=== PATIENT | female | born 1995 | race Caucasian/White ===

== ENCOUNTER 2020-01-15 23:27 | Emergency (ER) | payer MEDICAID ==
[2020-01-15 23:40] LABS: BILIRUBIN,URINE NEGATIVE (NEGATIVE); CLARITY,URINE CLEAR (CLEAR); GLUCOSE, URINE (UA) NEGATIVE (NEGATIVE); KETONES,URINE (UA) NEGATIVE (NEGATIVE); LEUKOCYTE ESTERASE, URINE TRACE (NEGATIVE); NITRITE,URINE NEGATIVE (NEGATIVE); OCCULT BLOOD,URINE LARGE (NEGATIVE); PH,URINE 7.5 PH (5.0-7.5); PROTEIN,URINE NEGATIVE (NEGATIVE); UROBILINOGEN,URINE 0.2 (NORMAL) E.U./dL (NORMAL)
[2020-01-15 23:49] LABS: BASOPHILS % (AUTO) 0.4 %; EOSINOPHILS # (AUTO) 0.2 10^3/uL (0.0-0.7); EOSINOPHILS % (AUTO) 2.2 %; HGB - HEMOGLOBIN 12.8 g/dL (12.0-16.0); LYMPHOCYTES # (AUTO) 1.9 10^3/uL (1.5-3.5); LYMPHOCYTES % (AUTO) 24.3 %; MEAN CORPUSCULAR HEMOGLOBIN 29.2 pg (27.0-31.0); MEAN CORPUSCULAR HGB CONC 33.1 g/dL (32.0-36.0); MEAN CORPUSCULAR VOLUME 88.2 fL (81.0-99.0); MEAN PLATELET VOLUME 8.5 fL (7.9-10.8); MONOCYTES # (AUTO) 0.7 10^3/uL (0.0-1.0); MONOCYTES % (AUTO) 9.4 %; NEUTROPHILS # (AUTO) 4.9 10^3/uL (1.5-6.6); NEUTROPHILS % (AUTO) 63.4 %; PLT - PLATELET COUNT 235 10^3/uL (130-450); RED BLOOD COUNT 4.39 10^6/uL (4.20-5.40); WHITE BLOOD COUNT 7.7 x10^3/uL (4.8-10.8)
--- NOTE | 2020-01-15 23:53 | ED Physician Documentation ---
PD HPI FEMALE - Stated complaint Stated Complaint: FEM /13 WKS - Chief complaint Chief Complaint: Abd Pain - History obtained from History obtained from: Patient - History of Present Illness Timing - onset: Enter time (1200), Today Timing - duration: Hours Timing - details: Gradual onset, Still present Associated symptoms: Pelvic pain, Vaginal bleeding Contributing factors: Similar symptoms before: Diagnosis (miscarriage) Recently seen: Clinic - Additional information Additional information: 44-year-old female with a history of multiple previous recurrent spontaneous abortions has a 2 and [id number] daughter at home and she has become again and she thinks she is about 13 weeks and has had an ultrasound done at 8 weeks showing a viable fetus. She has developed some bleeding earlier in the day and some cramping and she is concerned about the possibility of miscarriage. She has not had a late miscarriage like this previously. 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: Endometriosis, Other Other Past Medical History: Preeclampsia - Past Surgical History Past Surgical History: Yes /CLAM BED LABORER: section, Endometrial ablation - Present Medications Home Medications: Ambulatory Orders Medication Instructions Recorded Confirmed Calcium Carbonate [Calcium] 1 tab PO DAILY 01/15/20 01/15/20 Pnv No.95/Ferrous Fum/Folic AC 1 tab PO DAILY 01/15/20 01/15/20 [ Vitamin Tablet] - Allergies Allergies/Adverse Reactions: Allergies Allergy/AdvReac Type Severity Reaction Status Date / Time hydromorphone [From Dilaudid] Allergy Unknown Verified 01/15/20 23:43 morphine Allergy Anaphylaxis Verified 01/15/20 23:43 NSAIDS (Non-Steroidal Allergy Unknown Verified 01/15/20 23:43 Anti-Inflamma - Social History Does the pt smoke?: No Smoking Status: Never smoker Does the pt drink ETOH?: No Does the pt have substance abuse?: No - Immunizations Immunizations are current?: Yes - POLST Patient has POLST: No PD ED PE NORMAL - Vitals Vital signs reviewed: Yes (Normal) - General General: Alert and oriented X 3, No acute distress, Well developed/nourished - HEENT HEENT: Atraumatic, PERRL, EOMI - Respiratory Respiratory: No respiratory distress - Abdomen Abdomen: Soft, Non tender - Back Back: No CVA TTP, No spinal TTP - Derm Derm: Normal color, Warm and dry, No rash - Extremities Extremities: No deformity, No edema - Neuro Neuro: Alert and oriented X 3, mixologist 2-12 intact, No motor deficit, No sensory deficit, Normal speech Eye Opening: Spontaneous Motor: Obeys Commands Verbal: Oriented GCS Score: 15 - Psych Psych: Normal mood, Normal affect Results - Vitals Vitals: Vital Signs - 24 hr 01/15/20 01/16/20 01/16/20 23:28 00:58 02:03 Temperature 36.4 C L 36.8 C Heart Rate 71 66 76 Respiratory 16 15 15 Rate Blood Pressure 120/75 118/74 106/79 O2 Saturation 100 98 100 Oxygen O2 Source Room air - Labs Labs: Laboratory Tests 01/15/20 01/15/20 01/15/20 23:30 23:35 23:35 WBC 7.7 RBC 4.39 Hgb 12.8 Hct 38.7 MCV 88.2 MCH 29.2 MCHC 33.1 RDW 13.0 Plt Count 235 MPV 8.5 Neut # (Auto) 4.9 Lymph # (Auto) 1.9 Caroline # (Auto) 0.7 Eos # (Auto) 0.2 Baso # (Auto) 0.0 Absolute Nucleated RBC 0.00 Nucleated RBC % 0.0 Sodium 135 Potassium 3.6 Chloride 103 Carbon Dioxide 25 Anion Gap 7.0 BUN 14 Creatinine 0.5 Estimated GFR (MDRD) 152 Glucose 94 Calcium 8.8 Total Bilirubin 0.3 AST 14 ALT 13 Alkaline Phosphatase 45 Total Protein 7.7 Albumin 4.3 Globulin 3.4 Albumin/Globulin Ratio 1.3 Lipase 24 Urine Color YELLOW Urine Clarity CLEAR Urine pH 7.5 Ur Specific [place] 1.010 Urine Protein NEGATIVE Urine Glucose (UA) NEGATIVE Urine Ketones NEGATIVE Urine Occult Blood LARGE H Urine Nitrite NEGATIVE Urine Bilirubin NEGATIVE Urine Urobilinogen 0.2 (NORMAL) Ur Leukocyte Esterase TRACE H Urine RBC 0-5 Urine WBC 4-5 Ur Squamous Epith Cells FEW Squamous Urine Bacteria Few Ur Microscopic Review INDICATED Urine Culture Comments INDICATED Blood Type 01/15/20 23:35 WBC RBC Hgb Hct MCV MCH MCHC RDW Plt Count MPV Neut # (Auto) Lymph # (Auto) Caroline # (Auto) Eos # (Auto) Baso # (Auto) Absolute Nucleated RBC Nucleated RBC % Sodium Potassium Chloride Carbon Dioxide Anion Gap BUN Creatinine Estimated GFR (MDRD) Glucose Calcium Total Bilirubin AST ALT Alkaline Phosphatase Total Protein Albumin Globulin Albumin/Globulin Ratio Lipase Urine Color Urine Clarity Urine pH Ur Specific [place] Urine Protein Urine Glucose (UA) Urine Ketones Urine Occult Blood Urine Nitrite Urine Bilirubin Urine Urobilinogen Ur Leukocyte Esterase Urine RBC Urine WBC Ur Squamous Epith Cells Urine Bacteria Ur Microscopic Review Urine Culture Comments Blood Type A POSITIVE - Rads (name of study) ob u/s Radiology: Prelim report reviewed (Impression: 1. Intrauterine demise at estimated EGA 8 weeks 2 days with ALISSON 08/25/2020 based on crown-rump length, which is discordant with stated dates. 2 There is funneling in the internal cervical loss. The closed cervical length measures 2.3 to 2.6 cm. 3 Small hemorrhage adjacent to the gestational sac measuring 1.8 x 0.7 x 0.7 cm. 4 Small echogenic focus in the right ovary measuring 6 x 7 x 7 mm which could be a tiny dermoid.), Discussed with rads (Dr. Mcdowell recommends follow up ultrasound in about one year to follow the possible dermoid. ), EMP read indepedently, See rad report Procedures - Bedside sono Bedside sono by EMP: With use of bedside ultrasound the pelvis is imaged and I am seeing what appears to be an intrauterine gestation and I am not able to see cardiac activity. The fetus appears small for the size of the gestational sac and for the estimated gestational age. PD MEDICAL DECISION MAKING - ED course Complexity details: reviewed results, re-evaluated patient, considered differential, d/w patient ED course: 24-year-old female with a history of recurrent spontaneous has a demise at 8 weeks. She suspect she should be about 13 weeks now. I discussed with the patient the strategies of allowing nature to take its course, use of Misoprostal and D&C. She will contact her nurse practitioner who is following her obstetrical care. She will need a follow up ultrasound in about one year for evaluation of a possible dermoid on ultrasound. Departure - Departure Disposition: 01 Home, Self Care Clinical Impression: Miscarriage Condition: Stable Instructions: ED Miscarriage Incom Follow-Up: GULSHAN HENDRIX ND [Primary Care Provider] - [facility] [Provider Group] Comments: On your ultrasound today there is an incidental finding of a tiny dermoid on the right ovary. This is a slow-growing tumor and not a cancer and it is something that we will need to have a follow-up ultrasound done in about 1 year.
[2020-01-16 00:03] LABS: BACTERIA,URINE Few /HPF (None Seen); RBC,URINE 0-5 /HPF (0-5); SQUAMOUS EPITHELIAL CELL,UR FEW Squamous (<= Few)
[2020-01-16 00:12] LABS: ALBUMIN 4.3 g/dL (3.2-5.5); ALBUMIN/GLOBULIN RATIO 1.3 (1.0-2.2); BILIRUBIN,TOTAL 0.3 mg/dL (0.2-1.0); CALCIUM 8.8 mg/dL (8.5-10.3); CREATININE 0.5 mg/dL (0.4-1.0); TOTAL PROTEIN 7.7 g/dL (6.7-8.2)
--- NOTE | 2020-01-16 01:34 | Ultrasound Report ---
Reason: bleeding cramping 13wks Procedure Date: 01/16/2020 Accession Number: [id number] / [id number] Procedure: US - OB Transvaginal CPT Code: Final Report FULL RESULT: EXAM: FIRST TRIMESTER OBSTETRIC ULTRASOUND (Less than 11 weeks) EXAM DATE: 01/16/2020 12:41 AM. CLINICAL HISTORY: Bleeding, cramping 13 wks. LMP: Unknown. COMPARISONS: None. TECHNIQUE: Transabdominal and transvaginal ultrasound examination with static image documentation. CLINICAL DATES: EGA 12 weeks 3 days with ALISSON 07/27/2020 based on prior outside ultrasound per patient report. ASSESSMENT: Gestational Sac: Single intrauterine. Embryo: CRL (crown-rump length) 18.3 mm = 8 weeks 2 days. Cardiac activity: Not seen. Yolk sac: Not seen. Amniotic fluid: Not accurately assessed at this gestational age. Early placenta: Not visible at this gestational age. Other: Small hemorrhage adjacent to the gestational sac measuring 1.8 x 0.7 x 0.7 cm. MATERNAL STRUCTURES: Uterus: Anteverted. Unremarkable. Cervix: Funneling. Closed portion of the cervix measures 2.3-2.6 cm. Right Ovary/Adnexa: The ovary measures 4.7 x 2.2 x 2.2 cm, volume 11.8 cc. Small echogenic focus measuring 6 x 7 x 7 mm. Left Ovary/Adnexa: The ovary measures 3.5 x 1.8 x 2.8 cm, volume 9.2 cc. Small complex cystic focus measuring 1.4 x 0.8 x 1.2 cm. Free Fluid: None. Other: None. IMPRESSION: 1. Intrauterine demise at EGA 8 weeks 2 days with ALISSON 08/25/2020 based on crown-rump length, which is discordant with stated dates. 2. There is funneling of the internal cervical os. The closed cervical length measures 2.3-2.6 cm. 3. Small hemorrhage adjacent to the gestational sac measuring 1.8 x 0.7 x 0.7 cm. 4. Small echogenic focus in the right ovary measuring 6 x 7 x 7 mm which could be a tiny dermoid. RADIA
--- NOTE | 2020-01-16 01:34 | Ultrasound Report ---
Reason: bleeding, cramping 13 wks Procedure Date: 01/16/2020 Accession Number: [id number] / [id number] Procedure: US - OB First Trimester CPT Code: Final Report FULL RESULT: EXAM: FIRST TRIMESTER OBSTETRIC ULTRASOUND (Less than 11 weeks) EXAM DATE: 01/16/2020 12:41 AM. CLINICAL HISTORY: Bleeding, cramping 13 wks. LMP: Unknown. COMPARISONS: None. TECHNIQUE: Transabdominal and transvaginal ultrasound examination with static image documentation. CLINICAL DATES: EGA 12 weeks 3 days with ALISSON 07/27/2020 based on prior outside ultrasound per patient report. ASSESSMENT: Gestational Sac: Single intrauterine. Embryo: CRL (crown-rump length) 18.3 mm = 8 weeks 2 days. Cardiac activity: Not seen. Yolk sac: Not seen. Amniotic fluid: Not accurately assessed at this gestational age. Early placenta: Not visible at this gestational age. Other: Small hemorrhage adjacent to the gestational sac measuring 1.8 x 0.7 x 0.7 cm. MATERNAL STRUCTURES: Uterus: Anteverted. Unremarkable. Cervix: Funneling. Closed portion of the cervix measures 2.3-2.6 cm. Right Ovary/Adnexa: The ovary measures 4.7 x 2.2 x 2.2 cm, volume 11.8 cc. Small echogenic focus measuring 6 x 7 x 7 mm. Left Ovary/Adnexa: The ovary measures 3.5 x 1.8 x 2.8 cm, volume 9.2 cc. Small complex cystic focus measuring 1.4 x 0.8 x 1.2 cm. Free Fluid: None. Other: None. IMPRESSION: 1. Intrauterine demise at EGA 8 weeks 2 days with ALISSON 08/25/2020 based on crown-rump length, which is discordant with stated dates. 2. There is funneling of the internal cervical os. The closed cervical length measures 2.3-2.6 cm. 3. Small hemorrhage adjacent to the gestational sac measuring 1.8 x 0.7 x 0.7 cm. 4. Small echogenic focus in the right ovary measuring 6 x 7 x 7 mm which could be a tiny dermoid. RADIA
[2020-01-16 02:05] VITALS: BP 106/79
== END 2020-01-16 02:10 | disposition home or self-care (01) ==
LOC: ED 23:27
DX: O02.1 Missed abortion (principal); D27.0 Benign neoplasm of right ovary; Z3A.13 13 weeks gestation of pregnancy
CPT/HCPCS: 36415; 76801; 76817; 80053; 81001; 81003; 83690; 85025; 86900; 86901; 87086; 99283; 99284

== ENCOUNTER 2020-01-16 05:00 | Emergency (ER) | payer MEDICAID ==
[2020-01-16] MEDS ORDERED: ONDANSETRON ODT 4 MG TABLET TL STA (05:08)
[2020-01-16] MEDS ORDERED: KETOROLAC 60 MG/2 ML VIAL IM STA (05:37)
--- NOTE | 2020-01-16 05:41 | ED Physician Documentation ---
PD HPI FEMALE - Stated complaint Stated Complaint: FEM /VOMITING - Chief complaint Chief Complaint: Abd Pain - History obtained from History obtained from: Patient - History of Present Illness Timing - onset: Today Timing - duration: Hours Timing - details: Abrupt onset, Still present Associated symptoms: Pelvic pain, Vaginal bleeding Contributing factors: Other (Having a miscarriage) OB-CLAIM CLERK History: P (1), Miscarriage(s), Prior C section Similar symptoms before: Diagnosis (Miscarriage) Recently seen: Emergency Dept - Additional information Additional information: 24-year-old female was seen in the emergency department earlier in the day has come back to the emergency department with severe pelvic cramping pain and vomiting. She left the emergency department feeling well and she developed the intense cramping and increased bleeding consistent with the expected miscarriage. We did not provide narcotic pain reliever to her when she left because she indicated an allergy to all anti-inflammatories morphine hydromorphone and Vicodin. She thinks she may be able to tolerate tramadol. She states the reaction she has to anti-inflammatories is abdominal pain. Review of Systems Constitutional: denies: Fever, Chills, Myalgias Eyes: denies: Decreased vision Ears: denies: Ear pain Nose: denies: Congestion Throat: denies: Sore throat Cardiac: denies: Chest pain / pressure, Palpitations Respiratory: denies: Dyspnea, Cough GI: reports: Abdominal Pain, Nausea, Vomiting : denies: Dysuria, Frequency Skin: denies: Rash PD PAST MEDICAL HISTORY - Past Medical History CLAIM CLERK: Endometriosis, Other - Past Surgical History Past Surgical History: Yes /CLAIM CLERK: section, Endometrial ablation - Present Medications Home Medications: Ambulatory Orders Medication Instructions Recorded Confirmed Calcium Carbonate [Calcium] 1 tab PO DAILY 01/15/20 01/16/20 Pnv No.95/Ferrous Fum/Folic AC 1 tab PO DAILY 01/15/20 01/16/20 [ Vitamin Tablet] Ondansetron Odt [Zofran] 4 mg TL Q6H PRN #10 tablet 01/16/20 traMADol [Ultram] 50 - 100 mg PO Q6H PRN #20 tablet 01/16/20 - Allergies Allergies/Adverse Reactions: Allergies Allergy/AdvReac Type Severity Reaction Status Date / Time hydromorphone [From Dilaudid] Allergy Unknown Verified 01/16/20 05:11 morphine Allergy Anaphylaxis Verified 01/16/20 05:11 NSAIDS (Non-Steroidal Allergy Unknown Verified 01/16/20 05:11 Anti-Inflamma - Social History Does the pt smoke?: No Smoking Status: Never smoker Does the pt drink ETOH?: No Does the pt have substance abuse?: No - Immunizations Immunizations are current?: Yes - POLST Patient has POLST: No PD ED PE NORMAL - Vitals Vital signs reviewed: Yes (Normal) - General General: Alert and oriented X 3, Well developed/nourished, Other (The patient is vomiting and appears hysterically in pain.) - HEENT HEENT: Atraumatic, PERRL, EOMI - Respiratory Respiratory: No respiratory distress - Abdomen Abdomen: Soft, Other (Mild suprapubic tenderness) - Back Back: No CVA TTP, No spinal TTP - Derm Derm: Normal color, Warm and dry, No rash - Extremities Extremities: No deformity, No edema - Neuro Neuro: Alert and oriented X 3, No motor deficit, No sensory deficit, Normal speech Eye Opening: Spontaneous Motor: Obeys Commands Verbal: Oriented GCS Score: 15 - Psych Psych: Normal mood, Normal affect Results - Vitals Vitals: Vital Signs - 24 hr 01/16/20 05:00 Temperature 36.4 C L Heart Rate 84 Respiratory 24 Rate Blood Pressure 116/73 O2 Saturation 100 Oxygen O2 Source Room air PD MEDICAL DECISION MAKING - ED course Complexity details: reviewed old records, re-evaluated patient, considered differential, d/w patient ED course: 24-year-old female experiencing a miscarriage has significant pain and she is vomiting. She has improvement in her nausea with use of the Zofran and seems much improved. I have discussed with the patient treatment with pain medications and we will try Toradol IM here and plan to provide some tramadol for the patient to use as an outpatient. Departure - Departure Disposition: 01 Home, Self Care Clinical Impression: Miscarriage Instructions: ED Miscarriage Incom Follow-Up: GULSHAN HENDRIX ND [Primary Care Provider] - [facility] [Provider Group] Prescriptions: Ondansetron Odt [Zofran] 4 mg TL Q6H PRN #10 tablet PRN Reason: Nausea / Vomiting traMADol [Ultram] 50 - 100 mg PO Q6H PRN #20 tablet PRN Reason: Pain
[2020-01-16 06:19] VITALS: BP 148/82
== END 2020-01-16 06:29 | disposition home or self-care (01) ==
LOC: ED 05:00
DX: O03.9 Complete or unspecified spontaneous abortion without complication (principal); O02.1 Missed abortion; D27.0 Benign neoplasm of right ovary; Z3A.13 13 weeks gestation of pregnancy
CPT/HCPCS: 96372; 99283; 99284; Q0162; 36415; 76801; 76817; 80053; 81001; 83690; 85025; 86900; 86901; 87086

== ENCOUNTER 2020-09-12 13:59 | Outpatient (CLI) | payer MEDICAID ==
[2020-09-12 18:32] LABS: HCG,QUALITATIVE BLOOD NEGATIVE
== END 2020-09-12 14:00 | disposition home or self-care (01) ==
LOC: LAB.S 13:59
PROVIDERS: ATTEND Nurse Practitioner Obstetrics & Gynecology
DX: N91.0 Primary amenorrhea (principal)
CPT/HCPCS: 36415; 84703

== ENCOUNTER 2020-09-16 14:37 | Outpatient (CLI) | payer MEDICAID ==
--- NOTE | 2020-09-16 15:28 | Ultrasound Report ---
PROCEDURE: Pelvic w/Transvaginal INDICATIONS: HX OF OVARIAN, DYSMENORRHEA, ENOMETRIOSIS TECHNIQUE: Real-time scanning was performed of the pelvic organs, with image documentation. Additional endovagi nal scanning was necessary due to incomplete visualization of the adnexal and endometrial structures by transabdominal scanning. COMPARISON: OB ultrasound 01/16/2020. FINDINGS: Transabdominal scanning: Limited scanning through the kidneys shows no hydronephrosis. No pathologi c free abdominal or pelvic fluid. Endovaginal scanning: Uterus: Uterus is normal in size at 9.4 x 4.5 x 5.9 cm. The endometrium measures 8 mm in combined t hickness. Nabothian cysts are seen in the cervix. Ovaries: The right ovary measures 4.7 x 2.9 x 3.7 cm. The left ovary measures 4.1 x 2.6 x 4.1 cm. Khoa th ovaries contain multiple small follicles. The previously seen echogenic focus in the right ovary i s not definitely redemonstrated on the current exam. IMPRESSION: Mild symmetric enlargement of both ovaries with polycystic appearance is nonspecific, but can be seen in the setting of polycystic ovarian syndrome. Correlation with clinical findings is recommended. Reviewed by: Prakash Schulte MD on 09/16/2020 2:27 PM [facility] Approved by: Prakash Schulte MD on 09/16/2020 2:27 PM [facility] Station ID: [id number]
== END 2020-09-16 14:38 | disposition home or self-care (01) ==
LOC: DI 14:37
PROVIDERS: ATTEND Nurse Practitioner Obstetrics & Gynecology
DX: N83.8 Other noninflammatory disorders of ovary, fallopian tube and broad ligament (principal)

== ENCOUNTER 2020-10-17 12:42 | Outpatient (CLI) | payer MEDICAID ==
[2020-10-17 13:53] LABS: HGB - HEMOGLOBIN 13.3 g/dL (12.0-16.0); MEAN CORPUSCULAR HEMOGLOBIN 29.1 pg (27.0-31.0); MEAN CORPUSCULAR HGB CONC 32.7 g/dL (32.0-36.0); MEAN CORPUSCULAR VOLUME 89.1 fL (81.0-99.0); MEAN PLATELET VOLUME 8.3 fL (7.9-10.8); RED BLOOD COUNT 4.57 10^6/uL (4.20-5.40); RED CELL DISTRIBUTION WIDTH 13.2 % (12.0-15.0)
[2020-10-17 14:11] LABS: ALBUMIN 4.1 g/dL (3.2-5.5); ALBUMIN/GLOBULIN RATIO 1.4 (1.0-2.2); ALKALINE PHOSPHATASE 50 IU/L (42-121); ALT ALANINE AMINOTRANSFERASE 14 IU/L (10-60); AST ASPARTATE AMINOTRANSFERASE 17 IU/L (10-42); BILIRUBIN,TOTAL 0.6 mg/dL (0.2-1.0); BUN - BLOOD UREA NITROGEN 13 mg/dL (6-20); CARBON DIOXIDE - CO2 24 mmol/L (21-32); CHLORIDE 102 mmol/L (101-111); CHOL/HDL RATIO 2.1 (<4.4); CHOLESTEROL 154 mg/dL; CREATININE 0.6 mg/dL (0.4-1.0); GLUCOSE 88 mg/dL (70-100); HDL CHOLESTEROL 74 mg/dL; SODIUM 140 mmol/L (135-145)
[2020-10-17 14:19] LABS: HEMOGLOBIN A1c% 4.7 % (4.27-6.07)
[2020-10-17 14:23] LABS: THYROID STIMULATING HORMONE 0.93 uIU/mL (0.34-5.60)
[2020-10-17 14:51] LABS: FOLLICLE STIMULATING HORMONE 6.63 mIU/mL
== END 2020-10-17 12:43 | disposition home or self-care (01) ==
LOC: LAB 12:42
PROVIDERS: ATTEND Obstetrics & Gynecology
DX: Z13.1 Encounter for screening for diabetes mellitus (principal); N92.6 Irregular menstruation, unspecified; Z13.220 Encounter for screening for lipoid disorders; E28.2 Polycystic ovarian syndrome
CPT/HCPCS: 80053; 80061; 82670; 83001; 83036; 83721; 84403; 84443; 85027